=== PATIENT | female | born 1955 | race Caucasian/White ===

== ENCOUNTER 2018-06-30 10:18 | Outpatient (REF) | payer BC, SELFPAY ==
[2018-06-30 13:28] LABS: ALT 31 U/L (12-78); AST 17 U/L (15-37); Albumin 3.5 g/dL (3.4-5.0); Alkaline Phosphatase 55 U/L (46-116); Anion Gap 7.3 mmol/L (3-11); BUN 14 mg/dL (7-18); Bilirubin, Total 0.6 mg/dL (0.2-1.0); CO2 29.7 mmol/L (21.0-32.0); Calcium 8.7 mg/dL (8.5-10.1); Chloride 105 mmol/L (98-107); Cholesterol 177 mg/dL (50-200); Glucose 108 mg/dL (70-100); HDL Cholesterol 57 mg/dL (40-60); LDL CHOLESTEROL 104 mg/dL (<100); Potassium 4.2 mmol/L (3.5-5.1); Sodium 142 mmol/L (136-145); Total Protein 6.4 g/dL (6.4-8.2); Triglyceride 96 mg/dL (30-150)
== END 2018-06-30 10:38 ==
LOC: NCHCN 10:18
PROVIDERS: PCP Nurse Practitioner Family; Visit Provider Nurse Practitioner Family
DX: I10 Essential (primary) hypertension (principal); Z13.220 Encounter for screening for lipoid disorders
CPT/HCPCS: 80053; 80061; 83721

== ENCOUNTER 2018-07-06 00:56 | Outpatient (CLI) | payer BC, SELFPAY ==
--- NOTE | 2018-07-06 15:01 | DI.MAMMO_ITS ---
SYMPTOMS/DIAGNOSIS: SCREENING, Z12.39 MAMMOGRAMS: Mammograms were interpreted according to the usual protocol including computer analysis with CAD system, tomosynthesis and C view imaging. The breasts are of moderate density with fairly symmetrical distribution of fibroglandular tissue. No dominant mass or clumped microcalcification is identified in either breast. Current examination is compared with previous examinations including December 2015 and there has been no gross interval change in appearance in comparison with the previous studies. CONCLUSION: No specific evidence of malignancy at this time. Routine screening examinations are suggested at yearly intervals in this age group according to the ACS/ACR guidelines. Category 1, breast density category B. MQSA ASSESSMENT OF FINDINGS: Negative. Category 1. Patient will receive a letter notifying them of these results. BI-RADS category B. There are scattered areas of fibroglandular density.
== END 2018-07-06 01:16 ==
PROVIDERS: PCP Nurse Practitioner Family; Visit Provider Nurse Practitioner Family
DX: Z12.31 Encounter for screening mammogram for malignant neoplasm of breast (principal)
CPT/HCPCS: 77063; 77067

== ENCOUNTER 2018-08-10 15:17 | Outpatient (CLI) | payer BC, SELFPAY ==
--- NOTE | 2018-08-10 14:44 | DI.RAD_ITS ---
SYMPTOM/DIAGNOSIS: PAIN RIGHT FOOT RIGHT FOOT: No fracture or dislocation is seen. There are prominent calcaneal spurs. There are mild degenerative changes of the first MTP joint as well as mild degenerative changes of the tarsal articulations. IMPRESSION: Degenerative changes. No acute abnormality.
== END 2018-08-10 15:37 ==
PROVIDERS: PCP Nurse Practitioner Family; Visit Provider Orthopaedic Surgery
DX: M79.671 Pain in right foot (principal); M77.31 Calcaneal spur, right foot; M19.071 Primary osteoarthritis, right ankle and foot
CPT/HCPCS: 73630

== ENCOUNTER 2019-10-02 09:58 | Outpatient (CLI) | payer BC, SELFPAY ==
--- NOTE | 2019-10-02 09:30 | DI.RAD_ITS ---
EXAM: XR KNEE RT 3V AP,LAT,EMILY and XR standing alignment CLINICAL HISTORY: pain right knee. TECHNIQUE: 2D digital imaging was performed. COMPARISON: CR XR STANDING ALIGNMENT from 10/02/2019 FINDINGS: Marked degenerative changes are seen in the right knee in all 3 joint compartments characterized by j oint space narrowing, subchondral sclerosis and marginal osteophytes. The findings are most marked a t the patellofemoral joint and the medial femoral tibial joint. The bones are intact and normally mi neralized. There is a small enthesophyte at the superior patella. There is a small joint effusion. The soft tissues are unremarkable. Marked degenerative changes are noted in the left knee characterized by joint space narrowing, subcho ndral sclerosis and marginal osteophytes. The findings are most marked in the medial joint compartme nt. The right lower extremity measures 73.4 cm. The left lower extremity measures 73.8 cm. IMPRESSION: Marked osteoarthritis of the knees. DATA REPOSITORY: RADIATION DOSE DELIVERED:
== END 2019-10-02 10:18 ==
PROVIDERS: PCP Nurse Practitioner Family; Referring Provider Nurse Practitioner Family; Visit Provider Student in an Organized Health Care Education/Training Program
DX: M17.0 Bilateral primary osteoarthritis of knee (principal)
CPT/HCPCS: 73562; 77073

== ENCOUNTER 2020-09-04 20:10 | Outpatient (REF) | payer BC, SELFPAY ==
[2020-09-04 19:46] LABS: Anion Gap 10.8 mmol/L (3-11); BUN 11 mg/dL (7-18); CO2 25.2 mmol/L (21.0-32.0); CREATININE 0.8 mg/dL (0.55-1.02); Calcium 8.8 mg/dL (8.5-10.1); Chloride 109 mmol/L (98-107); Glucose 128 mg/dL (74-106); Sodium 145 mmol/L (136-145)
[2020-09-05 22:19] LABS: Calculated LDL 123 mg/dL (<100); Cholesterol 190 mg/dL (<200); HDL Cholesterol 51 mg/dL (40-60); Triglyceride 82 mg/dL (<150)
== END 2020-09-04 20:11 | disposition home or self-care (01) ==
LOC: NCHCN 20:10
PROVIDERS: PCP Nurse Practitioner Family; Visit Provider Nurse Practitioner Family
DX: I10 Essential (primary) hypertension (principal)
CPT/HCPCS: 80048; 80061

== ENCOUNTER 2020-09-18 03:29 | Outpatient (CLI) | payer BC, SELFPAY ==
--- NOTE | 2020-09-18 15:49 | DI.MAMMO_ITS ---
Exam(s) MAMMO SCREENING EXAM: MAMMO SCREENING CLINICAL HISTORY: SCREENING, Z12.39. TECHNIQUE: Bilateral full field digital CC and MLO mammographic images were obtained with 3D tomosyn thesis and utilizing computer aided detection (CAD). COMPARISON: Prior mammograms dating back to 2012, the most recent being June 2018. FINDINGS: There are no new spiculated masses nor malignant appearing microcalcification groups. There is no significant architectural distortion nor skin thickening-retraction. IMPRESSION: No radiographic evidence of malignancy. BI-RADS Category 1 - Negative Breast Density - Category B - Scattered areas of fibroglandular density Breast density Category C or D implies that the patient has dense breast tissue. Dense breast tissue can make it harder to find cancer on a mammogram. Dense breast tissue is also associated with an incr eased risk of breast cancer. This information about the result of the mammogram report was provided to the patient to raise their awareness. Use this report when you speak with the patient about their risks for breast cancer, which includes their family history. At that time, you may recommend additional screening tests (Ultrasoun d or MRI) as these tests may add significant information. A negative radiographic report should not delay biopsy if a dominant or clinically suspicious mass is present. Up to ten percent of cancers are not identified on mammography. A negative report may reinforce clinical impression. Adenosis and dense breasts may obscure an underlying neoplasm. False positive reports average 6 to 10%. Patient will receive a letter notifying them of these results.
== END 2020-09-18 03:49 ==
PROVIDERS: PCP Nurse Practitioner Family; Visit Provider Nurse Practitioner Family
DX: Z12.31 Encounter for screening mammogram for malignant neoplasm of breast (principal); R92.8 Other abnormal and inconclusive findings on diagnostic imaging of breast
CPT/HCPCS: 77063; 77067

== ENCOUNTER 2021-03-17 21:33 | Outpatient (REF) | payer BC, SELFPAY ==
[2021-03-17 22:22] LABS: Bilirubin Negative (Negative); Blood Negative (Negative); Clarity Clear (Clear); Glucose Negative (Negative); Ketones Negative (Negative); Leukocyte Esterase Negative (Negative); Nitrite Negative (Negative); Urobilinogen 0.2 EU/dL (Up TO 0.2)
== END 2021-03-17 21:34 | disposition home or self-care (01) ==
LOC: LBN 21:33
PROVIDERS: PCP Nurse Practitioner Family; Visit Provider Nurse Practitioner Family
DX: M54.50 Low back pain, unspecified (principal)
CPT/HCPCS: 81003

== ENCOUNTER 2021-10-01 16:11 | Outpatient (REF) | payer BC, SELFPAY ==
--- NOTE | 2021-10-01 13:20 | PAPFT_PTH ---
PATIENT: Laura Martin LOC: [facility] U#:[id number] AGE/SX: 65/F ROOM: RE10/01/[address]: Shanda Razo : 1955 BED: DIS: 10/01/2021 SPEC #: [id number] RECD: 10/01/21 18:17 STATUS: YVETTE REQ #: [id number] MANN: 10/01/21 13:[address]: Shanda Razo [facility]PT[facility] Cytology RECD BY: Tia Campos Tissues: 1 - CX/ENDOCX FOR PAP SMEARS Procedures: PAP THIN PREP/UVM Screening HPV DNA PROBE Comments: [id number]
[2021-10-01 19:27] LABS: HCT 44.6 % (36.0-46.0); HGB 14.6 g/dL (11.2-15.7); MCH 27.7 pg (27.0-33.0); MCHC 32.7 % (32.0-36.0); MCV 85 fL (80-95); MPV 9.8 fL (8.0-11.0); Platelet Count 279 10^3/uL (130-400); RBC 5.28 10^6/uL (3.93-5.22); RDW 14.6 % (11.7-14.6)
[2021-10-01 19:44] LABS: ALT 40 U/L (14-59); AST 19 U/L (15-37); Albumin 3.6 g/dL (3.4-5.0); Alkaline Phosphatase 55 U/L (46-116); Anion Gap 9.3 mmol/L (3-11); BUN 17 mg/dL (7-18); Bilirubin, Total 0.5 mg/dL (0.2-1.0); CO2 28.7 mmol/L (21.0-32.0); CREATININE 0.8 mg/dL (0.55-1.02); Calcium 9.1 mg/dL (8.5-10.1); Chloride 107 mmol/L (98-107); Glucose 106 mg/dL (74-106); Potassium 3.6 mmol/L (3.5-5.1); Sodium 145 mmol/L (136-145); Total Protein 6.9 g/dL (6.4-8.2)
== END 2021-10-01 16:12 | disposition home or self-care (01) ==
LOC: NCHCN 16:11
PROVIDERS: PCP Nurse Practitioner Family; Visit Provider Nurse Practitioner Family
DX: Z00.00 Encounter for general adult medical examination without abnormal findings (principal); I10 Essential (primary) hypertension; E66.01 Morbid (severe) obesity due to excess calories; Z12.4 Encounter for screening for malignant neoplasm of cervix; Z11.51 Encounter for screening for human papillomavirus (HPV)
CPT/HCPCS: 80053; 85027; 88142; 87624

== ENCOUNTER 2022-05-07 19:51 | Outpatient (CLI) | payer BC, SELFPAY ==
--- NOTE | 2022-05-07 11:45 | DI.RAD_ITS ---
Exam(s) XR CHEST 2V PA LATERAL EXAM: XR CHEST 2V PA LATERAL CLINICAL HISTORY: COUGH AFTER INFECTION R05.3 TECHNIQUE: 2D digital imaging was performed of the chest. Two images were obtained. PA and lateral views were obtained. COMPARISON: No exams were available for comparison FINDINGS: MEDIASTINUM: Normal. HEART: Normal. PULMONARY VASCULATURE: Normal. LUNGS: Small opacity seen in the right lung base which may represent a pneumonia. PLEURAL SPACE: No pleural effusion or pneumothorax. BONE:Within normal limits for the patient's age. OTHER FINDINGS:Normal. IMPRESSION: Small opacities in the right lung base which may represent pneumonia. A follow-up chest x-ray in [address] [place] [id number] is recommended to document resolution. DATA REPOSITORY: RADIATION DOSE DELIVERED:
== END 2022-05-07 20:11 ==
PROVIDERS: PCP Nurse Practitioner Family; Visit Provider Family Medicine
DX: R05.3 Chronic cough (principal); R91.8 Other nonspecific abnormal finding of lung field
CPT/HCPCS: 71046

== ENCOUNTER 2022-10-26 18:15 | Outpatient (REF) | payer BC, SELFPAY ==
[2022-10-26 19:08] LABS: Abs Immature Grans 0.02 10^3/uL (0.0-0.06); Absolute Basophil Count 0.02 10^3/uL (0.0-0.2); Absolute Eosinophil Count 0.13 10^3/uL (0.0-0.7); Absolute Lymphocyte Count 2.28 10^3/uL (1.2-3.4); Absolute Monocyte Count 0.32 10^3/uL (0.1-0.8); Absolute Neutrophil Count 3.19 10^3/uL (1.2-6.7); Basophils % 0.3; Eosinophils % 2.2; Immature Grans % 0.3; Lymphocytes % 38.3; MCH 26.6 pg (27.0-33.0); MCHC 31.8 % (32.0-36.0); MCV 84 fL (80-95); MPV 9.4 fL (8.0-11.0); Monocytes % 5.4; Neutrophils % 53.5; Platelet Count 291 10^3/uL (130-400); RBC 5.27 10^6/uL (3.93-5.22); RDW 14.2 % (11.7-14.6); RDW-SD 43.2 fL; WBC 5.96 10^3/uL (4.4-10.8)
[2022-10-26 19:42] LABS: ALT 46 U/L (14-59); AST 37 U/L (15-37); Albumin 3.4 g/dL (3.4-5.0); Alkaline Phosphatase 60 U/L (46-116); Anion Gap 8.5 mmol/L (3-11); BUN 7 mg/dL (7-18); Bilirubin, Total 0.4 mg/dL (0.2-1.0); CO2 29.5 mmol/L (21.0-32.0); CREATININE 0.8 mg/dL (0.55-1.02); Calcium 9.4 mg/dL (8.5-10.1); Chloride 102 mmol/L (98-107); Estimated GFR 81.72 (mL/min/1.73m2); Glucose 120 mg/dL (74-106); Potassium 3.7 mmol/L (3.5-5.1); Sodium 140 mmol/L (136-145); Total Protein 7.2 g/dL (6.4-8.2)
== END 2022-10-26 18:16 | disposition home or self-care (01) ==
LOC: NCHCN 18:15
PROVIDERS: PCP Nurse Practitioner Family; Visit Provider Nurse Practitioner Family
DX: R10.30 Lower abdominal pain, unspecified (principal); K62.5 Hemorrhage of anus and rectum
CPT/HCPCS: 80053; 85025

== ENCOUNTER 2022-12-31 19:08 | Outpatient (REF) | payer BC, SELFPAY ==
[2022-12-31 19:46] LABS: Calculated LDL 91 mg/dL (<100); Cholesterol 175 mg/dL (<200); HDL Cholesterol 44 mg/dL (40-60); Triglyceride 200 mg/dL (<150)
[2022-12-31 20:23] LABS: Hemoglobin A1C 7.1 % (<5.7)
== END 2022-12-31 19:09 | disposition home or self-care (01) ==
LOC: NCHCN 19:08
PROVIDERS: PCP Nurse Practitioner Family; Visit Provider Nurse Practitioner Family
DX: I10 Essential (primary) hypertension (principal); Z13.220 Encounter for screening for lipoid disorders; Z86.32 Personal history of gestational diabetes; Z83.3 Family history of diabetes mellitus
CPT/HCPCS: 80061; 83036

== ENCOUNTER → 2023-01-27 02:17 | Outpatient (CLI) | payer BC, SELFPAY ==
--- NOTE | 2023-01-27 15:05 | DI.MAMMO_ITS ---
Exam(s) MAMMO SCREENING EXAM: MAMMO SCREENING CLINICAL HISTORY: Screening Z12.39 TECHNIQUE: Mammograms were interpreted according to the usual protocol including computer analysis w [employer] CAD system, tomosynthesis and C-view imaging. COMPARISON: 2014 through 2020 FINDINGS: The breasts are composed of mainly fatty density , Breast Density category A. No suspicious masses or suspicious microcalcifications are seen. No skin thickening or abnormal axillary lymph nodes are seen. There has been no significant change from prior exams. IMPRESSION: BI-RADS Category 1, Negative mammogram Yearly screening mammography is recommended. Breast Density - Category A, fatty density. A negative radiographic report should not delay biopsy if a dominant or clinically suspicious mass is present. Up to ten percent of cancers are not identified on mammography. A negative report may reinforce clinical impression. Adenosis and dense breasts may obscure an underlying neoplasm. False positive reports average 6 to 10%. Patient will receive a letter notifying them of these results.
== END ==
PROVIDERS: PCP Nurse Practitioner Family; Visit Provider Nurse Practitioner Family
DX: Z12.31 Encounter for screening mammogram for malignant neoplasm of breast (principal); R92.313 Mammographic fatty tissue density, bilateral breasts
CPT/HCPCS: 77063; 77067

== ENCOUNTER 2024-04-26 21:21 | Outpatient (REF) | payer MEDICARE, BC, SELFPAY ==
[2024-04-26 19:55] LABS: Abs Immature Grans 0.04 10^3/uL (0.0-0.06); Absolute Basophil Count 0.05 10^3/uL (0.0-0.2); Absolute Eosinophil Count 0.12 10^3/uL (0.0-0.7); Absolute Lymphocyte Count 3.03 10^3/uL (1.2-3.4); Absolute Monocyte Count 0.64 10^3/uL (0.1-0.8); Absolute Neutrophil Count 6.81 10^3/uL (1.2-6.7); Basophils % 0.5 %; Eosinophils % 1.1 %; HCT 44.7 % (36.0-46.0); HGB 14.2 g/dL (11.2-15.7); Immature Grans % 0.4 %; Lymphocytes % 28.3 %; MCH 27.6 pg (27.0-33.0); MCHC 31.8 % (32.0-36.0); MCV 87 fL (80-95); MPV 9.3 fL (8.0-11.0); Neutrophils % 63.7 %; Platelet Count 337 10^3/uL (130-400); RBC 5.15 10^6/uL (3.93-5.22); RDW 14.5 % (11.7-14.6); RDW-SD 46.4 fL; WBC 10.69 10^3/uL (4.4-10.8)
[2024-04-26 20:48] LABS: ALT 37 U/L (14-59); AST 21 U/L (15-37); Albumin 3.5 g/dL (3.4-5.0); Alkaline Phosphatase 63 U/L (46-116); Anion Gap 7.8 mmol/L (3-11); BUN 24 mg/dL (7-18); Bilirubin, Total 0.3 mg/dL (0.2-1.0); CO2 29.2 mmol/L (21.0-32.0); CREATININE 0.9 mg/dL (0.55-1.02); Calcium 9.3 mg/dL (8.5-10.1); Calculated LDL 100 mg/dL (<100); Chloride 105 mmol/L (98-107); Cholesterol 200 mg/dL (<200); Estimated GFR 70.07 (mL/min/1.73m2); Glucose 121 mg/dL (74-106); HDL Cholesterol 56 mg/dL (>or=50); Sodium 142 mmol/L (136-145); TSH 2.48 uIU/mL (0.36-3.74); Total Protein 6.4 g/dL (6.4-8.2); Triglyceride 221 mg/dL (<150)
[2024-04-26 20:49] LABS: COMMENT (LAB VIEW ONLY) 100.73 mg/dL; Microalb ug/mg Crea 5.5 ug/mg Cr
[2024-04-27 17:53] LABS: T4, Free 1.3 ng/dL (0.8-2.2)
[2024-04-30 12:35] LABS: Hepatitis C Ab w Rflx HCV PCR Negative (Negative)
== END 2024-04-26 21:22 | disposition home or self-care (01) ==
LOC: NCHCN 21:21
PROVIDERS: Visit Provider Nurse Practitioner Family
DX: E11.9 Type 2 diabetes mellitus without complications (principal); I10 Essential (primary) hypertension; Z68.42 Body mass index [BMI] 45.0-49.9, adult; Z11.59 Encounter for screening for other viral diseases; E66.9 Obesity, unspecified
CPT/HCPCS: 80053; 80061; 86803; 82043; 82570; 84439; 84443; 85025

== ENCOUNTER 2024-06-07 00:30 | Outpatient (CLI) | payer MEDICARE, BC, SELFPAY ==
--- NOTE | 2024-06-07 15:25 | DI.MAMMO_ITS ---
Exam(s) MAMMO SCREENING EXAM: MAMMO SCREENING CLINICAL HISTORY: Screening, Z12.39. TECHNIQUE: Bilateral full field digital CC and MLO mammographic images were obtained with 3D tomosyn thesis and utilizing computer aided detection (CAD). COMPARISON: Prior mammograms in back to 2016 were reviewed. FINDINGS: There has been no significant change in the appearance and distribution of the fibroglandular tissue. There are no new spiculated masses nor malignant appearing microcalcification groups. There is no significant architectural distortion nor skin thickening-retraction. IMPRESSION: No radiographic evidence of malignancy. BI-RADS Category 1 - Negative Breast Density - Category B - Scattered areas of fibroglandular density Breast density Category C or D implies that the patient has dense breast tissue. Dense breast tissue can make it harder to find cancer on a mammogram. Dense breast tissue is also associated with an incr eased risk of breast cancer. This information about the result of the mammogram report was provided to the patient to raise their awareness. Use this report when you speak with the patient about their risks for breast cancer, which includes their family history. At that time, you may recommend additional screening tests (Ultrasoun d or MRI) as these tests may add significant information. A negative radiographic report should not delay biopsy if a dominant or clinically suspicious mass is present. Up to ten percent of cancers are not identified on mammography. A negative report may reinforce clinical impression. Adenosis and dense breasts may obscure an underlying neoplasm. False positive reports average 6 to 10%. Patient will receive a letter notifying them of these results.
== END 2024-06-07 00:50 ==
PROVIDERS: PCP Nurse Practitioner Family; Visit Provider Nurse Practitioner Family
DX: Z12.31 Encounter for screening mammogram for malignant neoplasm of breast (principal); R92.323 Mammographic fibroglandular density, bilateral breasts
CPT/HCPCS: 36415; 77063; 77067; 86787

== ENCOUNTER 2024-06-07 10:16 | Outpatient (CLI) | payer MEDICARE, BC, SELFPAY ==
[2024-06-11 11:34] LABS: Varicella IgG Antibody Positive (See Note)
== END 2024-06-07 10:17 | disposition home or self-care (01) ==
LOC: LBO 10-18 10:16
PROVIDERS: PCP Nurse Practitioner Family; Visit Provider Nurse Practitioner Family
DX: Z28.9 Immunization not carried out for unspecified reason (principal)
CPT/HCPCS: 36415; 86787

== ENCOUNTER 2024-08-08 15:12 | Outpatient (REF) | payer MEDICARE, BC, SELFPAY ==
[2024-08-08 17:47] LABS: Anion Gap 9.5 mmol/L (3-11); BUN 14 mg/dL (7-18); CO2 28.5 mmol/L (21.0-32.0); CREATININE 0.7 mg/dL (0.55-1.02); Calcium 9.5 mg/dL (8.5-10.1); Chloride 101 mmol/L (98-107); Estimated GFR 94.73 (mL/min/1.73m2); Glucose 109 mg/dL (74-106); Potassium 3.6 mmol/L (3.5-5.1); Sodium 139 mmol/L (136-145)
== END 2024-08-08 15:13 | disposition home or self-care (01) ==
LOC: NCHCN 15:12
PROVIDERS: PCP Nurse Practitioner Family; Visit Provider Student in an Organized Health Care Education/Training Program
DX: I10 Essential (primary) hypertension (principal)
CPT/HCPCS: 80048; 83735

== ENCOUNTER 2024-09-13 01:08 | Outpatient (CLI) | payer MEDICARE, BC, SELFPAY ==
--- NOTE | 2024-09-13 | DI.DEXA_ITS ---
Exam(s) XR DEXA BONE DENSITY W/WO DEJA EXAM: XR DEXA BONE DENSITY W/WO DEJA CLINICAL HISTORY: MENOPAUSAL STATE Z78.0 TECHNIQUE: COMPARISON: DX DEXA BONE DENSITY WITH DEJA from 05/13/2010 FINDINGS: Lateral Spine Image: Unremarkable. No compression deformities identified. Left hip: Total T-Score: 1.4. This compares to 0.9 on the prior examination. Total Z-Score: 2.8 T- and Z-scores: Within normal limits. Lumbar Spine: Total T-Score: 1.8. This compares to 1.0 on the prior examination. Total Z-Score: 3.8 T- and Z-scores: Within normal limits. IMPRESSION: No evidence of osteoporosis.
== END 2024-09-13 01:28 ==
LOC: DI 01:08
PROVIDERS: PCP Nurse Practitioner Family; Visit Provider Nurse Practitioner Family
DX: Z13.820 Encounter for screening for osteoporosis (principal); Z78.0 Asymptomatic menopausal state
CPT/HCPCS: 77080

== ENCOUNTER 2024-12-25 15:14 | Outpatient (CLI) | payer MEDICARE, BC, SELFPAY ==
[2024-12-25 15:29] LABS: Abs Immature Grans 0.02 10^3/uL (0.0-0.06); HCT 45.1 % (36.0-46.0); HGB 14.7 g/dL (11.2-15.7); Immature Grans % 0.2 %; MCH 26.9 pg (27.0-33.0); MCHC 32.6 % (32.0-36.0); MCV 83 fL (80-95); MPV 9.4 fL (8.0-11.0); Platelet Count 272 10^3/uL (130-400); RBC 5.46 10^6/uL (3.93-5.22); RDW 15.1 % (11.7-14.6); RDW-SD 45.5 fL; WBC 8.15 10^3/uL (4.4-10.8)
[2024-12-25 16:57] LABS: ALT 53 U/L (14-59); AST 23 U/L (15-37); Albumin 4.0 g/dL (3.4-5.0); Alkaline Phosphatase 61 U/L (46-116); Anion Gap 13.6 mmol/L (3-11); BUN 11 mg/dL (7-18); Bilirubin, Total 0.7 mg/dL (0.2-1.0); CO2 28.4 mmol/L (21.0-32.0); Calcium 9.9 mg/dL (8.5-10.1); Chloride 99 mmol/L (98-107); Glucose 99 mg/dL (74-106); Magnesium 2.2 mg/dL (1.8-2.4); Potassium 3.8 mmol/L (3.5-5.1); Sodium 141 mmol/L (136-145); Total Protein 6.9 g/dL (6.4-8.2)
[2024-12-28 15:09] LABS: B. miyamotoi PCR Negative (Negative); Babesia divergens/MO-1 Negative (Negative); Ehrlichia muris eauclairensis Negative (Negative)
== END 2024-12-25 15:15 | disposition home or self-care (01) ==
LOC: LBO 15:14
PROVIDERS: PCP Nurse Practitioner Family; Visit Provider Student in an Organized Health Care Education/Training Program
DX: M79.9 Soft tissue disorder, unspecified (principal); I10 Essential (primary) hypertension; S30.861A Insect bite (nonvenomous) of abdominal wall, initial encounter; W57.XXXA Bitten or stung by nonvenomous insect and other nonvenomous arthropods, initial encounter
CPT/HCPCS: 36415; 80053; 87798; 83735; 85025

== ENCOUNTER → 2025-01-07 01:32 | Outpatient (CLI) | payer MEDICARE, BC, SELFPAY ==
--- NOTE | 2025-01-07 09:30 | DI.US_ITS ---
APPROVED REPORT EXAM: Comprehensive 2D, Doppler, and color-flow Echocardiogram Patient Location: Out-Patient Card Feeder: Fernando Anderson RDCS (AE) Indications: ? Endocarditis, pt has osler's node Other Information Study Quality: Adequate. Technically limited study due to body habitus. Conclusion Normal left ventricular wall thickness and chamber size. Ejection fraction is 55 to 60%. Wall motion is normal Normal right ventricular size and function Both atria are normal in size There is no structural or hemodynamically significant valvular disease No valvular vegetations are identified Wall motion Left Ventricle The left ventricle is normal size. The left ventricular systolic function is normal. The left ventricular ejection fraction is within the normal range. There is normal left ventricular wall thickness. There is normal LV segmental wall motion. There is no ventricular septal defect visualized. LVEF is 55-60%. Right Ventricle The right ventricle is normal size. The right ventricular systolic function is normal. Atria The left atrium size is normal. The right atrium size is normal. Aortic Valve The aortic valve is normal in structure. Aortic valve is trileaflet. There is no aortic valvular stenosis. No aortic regurgitation is present. Mitral Valve The mitral valve is normal in structure. No evidence of mitral valve stenosis. There is no mitral valve regurgitation noted. Tricuspid Valve The tricuspid valve is normal in structure. There is no tricuspid valve stenosis. Trace tricuspid regurgitation. Pulmonic Valve The pulmonary valve is normal in structure. There is no pulmonic valvular stenosis. There is no pulmonic valvular regurgitation. Great Vessels The aortic root is normal in size. The ascending aorta is normal in size. IVC is normal in size and collapses >50% with inspiration. Pericardium There is no pericardial effusion. 2D Dimensions IVSD d PLAX 0.64 cm F: 0.6-1.0 Ao Root d 2.31 cm F: 2.7 - 3.3 LVPW d PLAX 0.58 cm F: 0.6 - 1.0 Ao Asc Diam d 3.02 cm F: 2.3 - 3.1 LVID d PLAX 5.58 cm F: 3.8 - 5.2 LVDs 3.77 cm F: 2.2 - 3.5 LV EF Teichholz 60.1 % FS 32.40 % LV EDV (Teich) 152.6 mL LV ESV (Teich) 60.9 mL Stroke Vol Index (Teich) 50.35 M-Mode TAPSE 2.64 cm (M/F) >1.7 Auto EF LV EDV A4C 88.0 mL LV EDV A2C LV EDV BP LV ESV A4C 39.0 mL LV ESV A2C LV ESV BP LVEF(%) A4C 55.7 % LVEF(%) A2C LVEF(%) BP LV SV A4C 49.0 ml LV SV A2C LV SV BP LV CO A4C 3.4 L/min LV CO A2C LV CO BP HR A4C 69.37 BPM HR A2C LV EDV Index (BP) LV Volumes - Method of Disks (Marcos's) Single Plane 2D LV Volumes Biplane 2D LV Volumes LV EDV A2C 42.7 mL LV EDV BP Index LV ESV A2C 19.3 mL SV BP LVEF(%) A2C 54.8 % SV Index LA Volume LA Length A4C 4.9 cm LA Length A2C LA Area A4C s 15.86 cm2 LA Area A2C s LA Vol A4C A-L 43.22 mL LA Vol A2C A-L LA Vol Biplane A-L LA Vol A4C MOD 40.3 mL LA Vol A2C MOD LA Vol BP MOD RA Volume RA Area A4C 8.2 cm2 RA ESV A4C (A-L) 16.7mL RA Vol/BSA A4C A-L RA Length A4C 3.4 cm RA ESV A4C (MOD) 16.0mL LV Diastology MV E' medial 0.098 (>0.07 m/s) MV E Vmax 0.63 (0.4-1.3 m/s) MV E/E' MED 6.42 (<14) MV A Vmax 0.80 (0.4-1.3 m/s) MV E' lateral 0.080 (>0.1 m/s) E/A Ratio 0.8 MV E/E' LAT 7.81 (<14) MV E' Average 0.089 m/s MV E/E'(average) 7.05 Aortic Valve AoV Vmax 1.09 m/s LVOT Vmax 0.82 m/s AoV Peak Grad 4.7 mmHg LVOT Peak Grad 2.7 mmHg AoV Area (Vmax) 1.74 cm2 LVOT VTI 0.189 m AoV VTI 0.194 m LVOT Mean Grad 1.5 mmHg AoV Mean Nabeel. 0.70 m/s LVOT SV 43.63 mL AoV Mean Grad 2.3 mmHg LVOT Diam s 1.70 cm AoV Area (VTI) 2.25 cm2 AV Regurg Peak Gr. 4.74 mmHg Velocity Ratio 0.75 Mitral Valve MV DT 143 (160-240 msec) Pulmonary Valve PV Vmax 1.24 (0.5-1.5 m/s) RVOT Vmax 0.79 m/s PV Peak Grad 6.3 mmHg RVOT Peak Gr. 2.5 mmHg PV Mean Nabeel 0.73 m/s RVOT VTI 0.147 m PV Mean Grad 2.5 mmHg RVOT Mean Gr. 1.2 mmHg
== END ==
LOC: DI 01:32
PROVIDERS: PCP Nurse Practitioner Family; Visit Provider Student in an Organized Health Care Education/Training Program
DX: I33.0 Acute and subacute infective endocarditis (principal)
CPT/HCPCS: 93306